=== PATIENT | male | born 1980 | race Caucasian/White ===

== ENCOUNTER 2021-09-08 10:14 | Outpatient (REF) | payer MEDICARE, MEDICAID, SELFPAY ==
[2021-09-08 10:26] LABS: MANUAL DIFF FLAG NO
[2021-09-08 10:38] LABS: Basophils Absolute Auto 0.1 X10*3/uL (0.0-0.2); Eosinophils Absolute Auto 0.2 X10*3/uL (0.0-0.4); Eosinophils Percent Auto 4.7 % (0-4); Hematocrit 41.3 % (42.0-52.0); Hemoglobin 12.9 g/dl (14.0-18.0); Imm Gran Abs Auto 0.01 X10*3/uL (0.00-0.03); Imm Gran Pct Auto 0.2 % (0.0-0.4); Lymphocytes Absolute Auto 2.6 X10*3/uL (1.2-4.9); Lymphocytes Percent Auto 52.5 % (20-40); Mean Corpuscular HGB Conc 31.2 g/dl (31.0-36.0); Mean Corpuscular Hemoglobin 27.2 pg (27.0-33.0); Mean Corpuscular Volume 87.1 fL (80.0-98.0); Mean Platelet Volume 10.4 fL (9.4-12.4); Monocytes Absolute Auto 0.4 X10*3/uL (0.1-1.2); Monocytes Percent Auto 7.5 % (2-11); Neutrophils Absolute Auto 1.7 x10*3/uL (2.0-8.3); Neutrophils Percent Auto 34.1 % (45-73); Platelet Count 303 X10*3/uL (160-400); Red Blood Count 4.74 X10*6/uL (4.60-5.80); White Blood Count 4.9 X10*3/uL (4.8-10.8)
[2021-09-08 11:02] LABS: Alanine Aminotransferase 30 U/L (0-40); Albumin Level 4.5 g/dL (3.5-5.0); Alkaline Phosphatase 137 U/L (39-117); Anion Gap 12 (12-20); Aspartate Amino Transferase 43 U/L (5-37); Bilirubin Total 0.9 mg/dL (0.0-1.0); Blood Urea Nitrogen 9 mg/dL (9-16); Calcium 9.7 mg/dL (8.4-10.2); Carbon Dioxide 27 mmol/L (22-29); Chloride 107 mmol/L (96-108); Estimated Glomerular Filt Rate > 60; Glucose Fasting 101 mg/dL (60-99); Potassium 4.5 mmol/L (3.3-5.1); Sodium 141 mmol/L (135-145)
[2021-09-08 11:09] LABS: B Type Natriuretic Peptide < 10 pg/mL (<100)
[2021-09-08 11:23] LABS: Thyroid Stimulating Hormone 3.29 uIU/mL (0.32-4.0)
== END 2021-09-08 10:15 | disposition home or self-care (01) ==
LOC: HO.LAB 10:14
PROVIDERS: Visit Provider Internal Medicine
DX: R60.0 Localized edema (principal)
CPT/HCPCS: 36415; 80053; 83880; 84443; 85025

== ENCOUNTER 2022-05-20 10:49 | Outpatient (REF) | payer MEDICARE, MEDICAID, SELFPAY ==
[2022-05-20 11:19] LABS: MANUAL DIFF FLAG NO
--- NOTE | 2022-05-20 11:40 | ECG_ITS ---
Test Reason : R07.9 Blood Pressure : / mmHG Vent. Rate : 085 BPM Atrial Rate : 085 BPM P-R Int : 132 ms QRS Dur : 098 ms QT Int : 376 ms P-R-T Axes : 069 062 067 degrees QTc Int : 447 ms Normal sinus rhythm Normal ECG When compared with ECG of 02-DEC-2015 06:19, Premature ventricular complexes are no longer Present Vent. rate has decreased BY 49 BPM Non-specific change in ST segment in Inferior leads Nonspecific T wave abnormality no longer evident in Lateral leads Referred By: Daphnie Nelson Electronically Signed By:ABBIE OLIVO
[2022-05-20 11:56] LABS: Basophils Percent Auto 0.9 % (0-2); Eosinophils Absolute Auto 0.2 X10*3/uL (0.0-0.4); Eosinophils Percent Auto 3.6 % (0-4); Hematocrit 39.6 % (42.0-52.0); Lymphocytes Absolute Auto 1.9 X10*3/uL (1.2-4.9); Lymphocytes Percent Auto 41.9 % (20-40); Mean Corpuscular HGB Conc 32.8 g/dl (31.0-36.0); Mean Corpuscular Hemoglobin 28.4 pg (27.0-33.0); Mean Corpuscular Volume 86.7 fL (80.0-98.0); Mean Platelet Volume 10.7 fL (9.4-12.4); Monocytes Absolute Auto 0.4 X10*3/uL (0.1-1.2); Monocytes Percent Auto 9.4 % (2-11); Neutrophils Percent Auto 44.2 % (45-73); Platelet Count 192 X10*3/uL (160-400); Red Blood Count 4.57 X10*6/uL (4.60-5.80); Red Cell Distribution Width 16.3 % (11.0-16.0); White Blood Count 4.5 X10*3/uL (4.8-10.8)
[2022-05-20 12:56] LABS: Alanine Aminotransferase 30 U/L (0-40); Albumin Level 4.1 g/dL (3.5-5.0); Alkaline Phosphatase 103 U/L (39-117); Anion Gap 18 (12-20); Aspartate Amino Transferase 66 U/L (5-37); Bilirubin Total 0.8 mg/dL (0.0-1.0); Blood Urea Nitrogen 11 mg/dL (9-16); Calcium 8.9 mg/dL (8.4-10.2); Carbon Dioxide 30 mmol/L (22-29); Chloride 97 mmol/L (96-108); Cholesterol 171 mg/dL; Estimated Glomerular Filt Rate > 60; Glucose Random 100 mg/dL (60-115); HDL Cholesterol 60 mg/dL; LDL Cholesterol Calculated 64 mg/dl; Potassium 4.6 mmol/L (3.3-5.1); Sodium 140 mmol/L (135-145); Triglycerides 237 mg/dL
[2022-05-20 13:10] LABS: Thyroid Stimulating Hormone 1.61 uIU/mL (0.32-4.0)
[2022-05-21 16:42] LABS: NT-proBNP 27 pg/mL
== END 2022-05-20 10:50 | disposition home or self-care (01) ==
LOC: HO.LAB 10:49
PROVIDERS: PCP Internal Medicine; Visit Provider Internal Medicine
DX: R07.9 Chest pain, unspecified (principal); R60.0 Localized edema
CPT/HCPCS: 36415; 80053; 80061; 83880; 84443; 85025; 93005

== ENCOUNTER 2022-07-21 14:09 | Outpatient (REF) | payer MEDICARE, MEDICAID, SELFPAY ==
[2022-07-21 16:11] LABS: Syphilis Screen Nonreactive (Nonreactive)
[2022-07-21 17:22] LABS: CT PCR NOT DETECTED (Not Detect.); NG PCR NOT DETECTED (Not Detect.)
[2022-07-22 07:45] LABS: HBc Num1 0.05 S/CO (0.00-0.79); HBsAGNum1 0.25 S/CO (0.00-0.99); HIV AB/AG Nonreactive (Nonreactive); HIV Num 1 0.09 S/CO (0.00-0.99); Hepatitis B Core Antibody Nonreactive (Nonreactive); Hepatitis B Surface Antigen Negative (Negative); ~HepC Num1 0.14 S/CO (0.00-0.79); ~Hepatitis B Surface Antibody REACTIVE (Nonreactive); ~Hepatitis C Antibody Nonreactive (Nonreactive)
== END 2022-07-21 14:10 | disposition home or self-care (01) ==
LOC: HO.LAB 14:09
PROVIDERS: PCP Internal Medicine; Visit Provider Physician Assistant
DX: Z11.4 Encounter for screening for human immunodeficiency virus [HIV] (principal); Z11.3 Encounter for screening for infections with a predominantly sexual mode of transmission; Z20.2 Contact with and (suspected) exposure to infections with a predominantly sexual mode of transmission
CPT/HCPCS: 86704; 86706; 86780; 86803; 87340; 87389; 87491; 87591

== ENCOUNTER → 2022-10-04 10:35 | Outpatient (BNVA) | payer MEDICARE, MEDICAID, SELFPAY | PROVIDERS: PCP Internal Medicine; Visit Provider Nurse Practitioner Psychiatric/Mental Health | DX: F10.20 Alcohol dependence, uncomplicated (principal) | CPT/HCPCS: 99202 ==

== ENCOUNTER 2023-02-23 12:33 | Outpatient (REF) | payer MEDICARE, MEDICAID, SELFPAY ==
[2023-02-23 14:07] LABS: Hematocrit 40.7 % (42.0-52.0); Mean Corpuscular HGB Conc 31.9 g/dl (31.0-36.0); Mean Corpuscular Hemoglobin 29.4 pg (27.0-33.0); Mean Corpuscular Volume 92.1 fL (80.0-98.0); Mean Platelet Volume 10.9 fL (9.4-12.4); Platelet Count 291 X10*3/uL (160-400); Red Blood Count 4.42 X10*6/uL (4.60-5.80); Red Cell Distribution Width 14.5 % (11.0-16.0); White Blood Count 7.7 X10*3/uL (4.8-10.8)
[2023-02-23 14:33] LABS: Iron 45 mcg/dL (45-160); Percent Iron Saturation 12 % (15-50); Total Iron Binding Capacity 364 mcg/dL (228-428); Unsaturated Iron Binding 319 ug/dL
[2023-02-23 14:43] LABS: Ferritin 10 ng/mL (20-250)
[2023-02-25 20:29] LABS: Immunoglobulin A 353 mg/dL (47-310)
[2023-03-01 20:33] LABS: Transglutaminase IgA <1.0 U/mL
== END 2023-02-23 12:34 | disposition home or self-care (01) ==
LOC: HO.LAB 12:33
PROVIDERS: PCP Internal Medicine; Visit Provider Internal Medicine
DX: K64.9 Unspecified hemorrhoids (principal); K92.1 Melena
CPT/HCPCS: 36415; 82728; 82784; 83540; 85027; 86364; 99202

== ENCOUNTER 2023-03-25 10:00 | Outpatient (RCR) | payer MEDICARE, MEDICAID, SELFPAY ==
--- NOTE | 2023-03-10 13:54 | MHC.PT.EP ---
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 Per referring provider's last note on 02/09/23: records obtained after visit show cta chest with age indeterminate but likely chronic mild compression deformities at T4-T7 with out fracture or subluxation which is likely pertinent to his pain. He does also present w/ significant muscular tension/spasm to periscapular musculature. Impairments include pain, decreased range of motion, decreased strength, impaired functional mobility, impaired postural awareness, and altered ambulation mechanics. pt is a good candidate for skilled PT due to age, potential remediation of impairments, typical disease/condition progression and prognosis, comorbidities, and motivation. pt would benefit from skilled PT intervention to provide a tailored strengthening and stretching exercise program, functional training, gait training, postural re-training, neuromuscular re-education, modalities as needed for pain, equipment safety demonstration. Frequency and Duration: The patient will be seen 2x/wk for 4 wks Short Term Goals: pt will be I w/ HEP to promote self-management of condition. pt will demo proper sitting posture w/ lumbar roll to promote neutral spine w/ seated ADLs. Retirement Goals: pt will report a statistically significant improvement in self-reported outcome measure, Bernie, to promote return to PLOF. pt will improve thoracolumbar flexion to 100% to promote ease in lower body dressing. Treatment Plan: Modalities to reduce pain, spasms and effusion. Manual therapy to restore motion and function. Therapeutic exercise to improve strength and flexibility. Neuromuscular re-education for posture and balance. Therapeutic activities to return to functional activities of daily living. Electronically signed by: Brianna Beard PT, DPT Please sign and return to therapist. Thank you for your referral.
--- NOTE | 2023-04-06 10:17 | MHC.PT.DC ---
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 Per [facility] Core Therapy policy he is being discharged for non-compliance. He has been given a home exercise program he should continue with at this time. Electronically signed by: Brianna Beard PT, DPT Please sign and return to therapist. Thank you for your referral.
== END 2023-04-06 10:17 | disposition home or self-care (01) ==
LOC: HO.PT 10:00
PROVIDERS: PCP Internal Medicine; Visit Provider Physician Assistant
DX: M51.24 Other intervertebral disc displacement, thoracic region (principal)
CPT/HCPCS: 97110; 97140; 97162

== ENCOUNTER 2023-03-28 11:06 | Outpatient (REF) | payer MEDICARE, MEDICAID, SELFPAY | END 2023-03-28 11:07 | disposition home or self-care (01) | LOC: HO.MRI 11:06 | PROVIDERS: PCP Internal Medicine; Visit Provider Physician Assistant | DX: M43.9 Deforming dorsopathy, unspecified (principal); M54.10 Radiculopathy, site unspecified | CPT/HCPCS: 72146 ==

== ENCOUNTER 2023-04-25 15:30 | Outpatient (REF) | payer MEDICARE, MEDICAID, SELFPAY ==
[2023-04-25 16:19] LABS: MANUAL DIFF FLAG NO
[2023-04-25 16:40] LABS: Basophils Percent Auto 0.6 % (0-2); Eosinophils Absolute Auto 0.1 X10*3/uL (0.0-0.4); Eosinophils Percent Auto 2.1 % (0-4); Hematocrit 41.2 % (42.0-52.0); Hemoglobin 13.3 g/dl (14.0-18.0); Imm Gran Abs Auto 0.03 X10*3/uL (0.00-0.03); Imm Gran Pct Auto 0.5 % (0.0-0.4); Lymphocytes Absolute Auto 2.1 X10*3/uL (1.2-4.9); Lymphocytes Percent Auto 33.5 % (20-40); Mean Corpuscular HGB Conc 32.3 g/dl (31.0-36.0); Mean Corpuscular Hemoglobin 28.9 pg (27.0-33.0); Mean Corpuscular Volume 89.4 fL (80.0-98.0); Mean Platelet Volume 10.7 fL (9.4-12.4); Monocytes Absolute Auto 0.5 X10*3/uL (0.1-1.2); Monocytes Percent Auto 7.4 % (2-11); Neutrophils Absolute Auto 3.5 x10*3/uL (2.0-8.3); Neutrophils Percent Auto 55.9 % (45-73); Platelet Count 170 X10*3/uL (160-400); Red Blood Count 4.61 X10*6/uL (4.60-5.80); Red Cell Distribution Width 15.5 % (11.0-16.0); White Blood Count 6.2 X10*3/uL (4.8-10.8)
[2023-04-25 17:11] LABS: Iron 152 mcg/dL (45-160); Percent Iron Saturation 48 % (15-50); Total Iron Binding Capacity 319 mcg/dL (228-428); Unsaturated Iron Binding 167 ug/dL
== END 2023-04-25 15:31 | disposition home or self-care (01) ==
LOC: HO.LAB 15:30
PROVIDERS: PCP Internal Medicine; Visit Provider Internal Medicine
DX: D64.9 Anemia, unspecified (principal); K64.9 Unspecified hemorrhoids; K92.1 Melena
CPT/HCPCS: 36415; 83540; 85025; 99212

== ENCOUNTER 2023-04-25 15:30 | Outpatient (AMB) | payer MEDICARE, MEDICAID, SELFPAY ==
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
[2023-04-25 15:34] VITALS: BP 149/89; PULSE 86; BMI 28.1
== END 2023-04-25 16:38 | disposition home or self-care (01) ==
PROVIDERS: PCP Internal Medicine; Visit Provider Internal Medicine
DX: K64.9 Unspecified hemorrhoids (principal); K92.1 Melena
CPT/HCPCS: 99214

== ENCOUNTER 2023-06-09 08:19 | Day surgery (SDC) | payer MEDICARE, MEDICAID, SELFPAY ==
[2023-03-01 11:03] VITALS: BMI 28.8
--- NOTE | 2023-03-01 15:05 | P.CONAN_ITS ---
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 [facility] Active Problems Active Problems: All Active Problems (Updated 02/11/23 @ 18:38 by NATACHA Thomas) Compression deformity of vertebra (Acute) Radicular pain of both lower extremities (Acute) Bloody stools (Acute) Alcohol use disorder, severe, dependence (Acute) Spitting up blood (Acute) Hemorrhoids (Acute) Blood in stool (Acute) GERD (gastroesophageal reflux disease) (Acute) Alcohol dependence (Acute) SHERRON (generalized anxiety disorder) (Acute) Chest pain (Acute) Lytic bone lesions on xray (Acute) Insomnia (Acute) Rib pain (Acute) Leg edema (Acute) Left elbow pain (Acute) Past Medical History Medical History Compression deformity of vertebra Insomnia Left elbow pain Leg edema Lytic bone lesions on xray Rib pain Social History Social History Housing: Apartment Patient Tobacco Use Status: Former Tobacco user Tobacco use type: Cigarette e-Cigarette/Vaping Use: Never Used Second Hand Smoke Exposure: No service: No Current occupational status: unemployed Cognitive needs: No Hearing needs: No Vision needs: No Meds Allergies Allergy/AdvReac Type Severity Reaction Status Date / Time No Known Allergies Allergy Verified 02/23/23 12:57 [No Known Allergies*] seasonal allergies Allergy Unknown Sneezing Uncoded 02/09/23 13:22 Home Medications Medication Instructions Recorded Confirmed Last Taken Type albuterol sulfate 90 mcg/actuation 2 puff inhalation Q6H PRN 09/07/21 02/11/23 Unknown History aerosol inhaler (ProAir HFA) Exam Exam Date and Time: March 01, 2023 1505 Height,Weight and Vital Signs: Height 5 ft 8.5 in Weight 87.09 kg Pertinent Lab Results Pertinent Lab Results: Laboratory Tests 02/23/23 13:48 WBC 7.7 Hgb 13.0 L Hct 40.7 L Plt Count 291 D Assessment and Plan Assessment Anesthesia Assessment: Chart Reviewed
[2023-06-06 12:33] VITALS: BMI 28.0
--- NOTE | 2023-06-08 11:04 | HO.ANESPROP2 ---
HPI - Anesthesia Eval Consult details Narrative: 42yo M for Colonoscopy PMFSH Active Problems Active Problems: All Active Problems (Updated 04/29/23 @ 15:44 by Daphnie Nelson MD) Protrusion of thoracic intervertebral disc (Acute) Compression deformity of vertebra (Acute) Radicular pain of both lower extremities (Acute) Bloody stools (Acute) Alcohol use disorder, severe, dependence (Acute) Spitting up blood (Acute) Hemorrhoids (Acute) Blood in stool (Acute) GERD (gastroesophageal reflux disease) (Acute) Alcohol dependence (Acute) SHERRON (generalized anxiety disorder) (Acute) Chest pain (Acute) Lytic bone lesions on xray (Acute) Insomnia (Acute) Rib pain (Acute) Leg edema (Acute) Left elbow pain (Acute) Past Medical History Medical History Compression deformity of vertebra Lytic bone lesions on xray Insomnia Rib pain Leg edema Left elbow pain Social History Social History Housing: Apartment Patient Tobacco Use Status: Current everyday Tobacco user Tobacco use type: Cigarette e-Cigarette/Vaping Use: Never Used Second Hand Smoke Exposure: No service: No Current occupational status: unemployed Cognitive needs: No Hearing needs: No Vision needs: No Meds Allergies Allergy/AdvReac Type Severity Reaction Status Date / Time No Known Allergies Allergy Verified 04/25/23 15:42 [No Known Allergies*] Exam Exam Date and Time: June 08, 2023 1104 Height,Weight and Vital Signs: Height 5 ft 8.5 in Weight 84.822 kg Assessment and Plan Assessment Anesthesia Assessment: Chart Reviewed
[2023-06-09 09:38] VITALS: BMI 27.7
[2023-06-09 09:42] VITALS: BMI 27.7
[2023-06-09 09:43] VITALS: BP 135/93; PULSE 82; RESP 18; TEMP 36.9; O2SAT 95
[2023-06-09] MEDS: Lactated Ringers 1,000 ML 100 ML IVCONT (10:08)
--- NOTE | 2023-06-09 10:15 | P.OP_ITS ---
Operative Note Operative Note Date of Service: 06/09/23 Narrative: Procedure: Colonoscopy Indication: Lower GI bleeding Endoscopist: Lena Rios MD Anesthesia Provider: Dr Janna Dominguez Anesthesia type: MAC Instrument: Olympus [id number] Consent: Indication, risks vs benefits, and alternatives were discussed with the patient who gave written informed consent to proceed. An program director/morning show host was utilized to assist with the consent. EKG, pulse, pulse oximetry and blood pressure were monitored throughout the procedure. Please see anesthesia flowsheet. Procedure: The patient was brought to the procedure room and placed in the left lateral decubitus position. IV medications were administered by the anesthesia provider in attendance. A digital rectal exam was performed which was abnormal due to finding of hemorrhoids. The colonoscope was then inserted through the anus and advanced through the colon to the cecum at 75 cm,and terminal ileum. Mucosa was carefully examined under high definition white light as the instrument was slowly withdrawn in a retrograde panoramic fashion. Retroflexion was performed in rectum. The procedure was not difficult. There were no immediate obvious complications. The quality of the prep was BBPS: 3+2+3 = adequate Withdrawal time 10 minutes. Limitations: No limitations. Findings: Mucosa: Normal to cecum and terminal ileum. Protruding lesions: * Large internal hemorrhoids with stigmata of recent bleeding. Impression: 1. Normal colon and terminal ileum mucosa 2. Large internal and external hemorrhoids with stigmata of bleeding Recommendations: - Add fiber supplementation - Anusol supp x 7-10 days - Avoid constipation - Can consider surg referral if hemorrhoidal bleeding does not respond to medical management
--- NOTE | 2023-06-09 10:15 | MHC.SHP ---
Pre-Procedural Eval Section A Date of Service: 06/09/23 Section B Chief Complaint: Rectal bleeding Details of Present Illness: PMH: Compression deformity of vertebra Insomnia Left elbow pain Leg edema Lytic bone lesions on xray Rib pain Present Medications: see Short Stay Collaborative assessment Allergies: Allergies Allergy/AdvReac Type Severity Reaction Status Date / Time No Known Allergies Allergy Verified 04/25/23 15:42 [No Known Allergies*] Review of Systems Review of Systems Comment: 10 point ROS negative Exam Exam Comment: Gen appear: No acute distress HEENT: no icterus Chest: No overt resp distress Abd: soft, nontender, nondistended Psych: Stable affect, answering questions appropriately Neuro: A/Ox3 noted to move all extremities spontaneously Ext: no peripheral edema Plan Diagnosis/Plan: Unchanged I have reviewed the history and physical and performed a pertinent physical examination on my patient. No changes have occurred unless specified. Time Spent With Patient Time: Total time managing care of this patient today ____ minutes.
--- NOTE | 2023-06-09 10:28 | P.CONAN_ITS ---
[facility] Active Problems Active Problems: All Active Problems (Updated 04/29/23 @ 15:44 by Daphnie Nelson MD) Protrusion of thoracic intervertebral disc (Acute) Compression deformity of vertebra (Acute) Radicular pain of both lower extremities (Acute) Bloody stools (Acute) Alcohol use disorder, severe, dependence (Acute) Spitting up blood (Acute) Hemorrhoids (Acute) Blood in stool (Acute) GERD (gastroesophageal reflux disease) (Acute) Alcohol dependence (Acute) SHERRON (generalized anxiety disorder) (Acute) Chest pain (Acute) Lytic bone lesions on xray (Acute) Insomnia (Acute) Rib pain (Acute) Leg edema (Acute) Left elbow pain (Acute) surdo-mutity Past Medical History Medical History Compression deformity of vertebra Lytic bone lesions on xray Insomnia Rib pain Leg edema Left elbow pain Functional capacity: independent ambulation Family History Family history of problems with anesthesia: No Surgical History History of Problems with Anesthesia: No Social History Social History Housing: Apartment Patient Tobacco Use Status: Current everyday Tobacco user Tobacco use type: Cigarette e-Cigarette/Vaping Use: Never Used Date Education Initiated: 06/09/23 Second Hand Smoke Exposure: No Use of substances other than those prescribed or required for medical reasons: No Are you DNR?: No Advance Directives: No Advance Directives Information Provided: Yes service: No Current occupational status: unemployed Cognitive needs: No Hearing needs: No Vision needs: No Meds Allergies Allergy/AdvReac Type Severity Reaction Status Date / Time No Known Allergies Allergy Verified 04/25/23 15:42 [No Known Allergies*] Active Medications: Current Medications Lactated Ringer's (Lr) 1,000 mls @ 100 mls/hr IVCONT .Q10H DAVID Last Admin: 06/09/23 10:08 Dose: 100 mls/hr Exam Exam Date and Time: June 09, 2023 1028 Height,Weight and Vital Signs: Height 5 ft 8.5 in Weight 83.915 kg Last Vital Signs Temp 98.5 F 06/09/23 09:43 Pulse 82 06/09/23 09:43 Resp 18 06/09/23 09:43 BP 135/93 H 06/09/23 09:43 Pulse Ox 95 06/09/23 09:43 O2 Del Method Room Air 06/09/23 09:43 Airway Mallampati Class: II TM Dist: >3cm Neck ROM: Full Heart: RRR Lungs: CTA Assessment and Plan Assessment Anesthesia Assessment: Anesthesia Plan Discussed Final Anesthetic Review Family History of Problems with Anesthesia: No History of Problems with Anesthesia: No NPO: Yes ASA Class: II Final Preanesthetic Review: Meds/Allgs Chart Reviewed, Consent Obtained/Reviewed and Anes Risks/Benef Reviewed Patient Risk: Low Procedure Risk: Low Anesthetic Plan Anesthetic Plan: MAC: Disposition: Standard PACU
[2023-06-09 10:42] VITALS: BP 111/62; PULSE 105; RESP 16; TEMP 36.2; O2SAT 94
[2023-06-09 10:57] VITALS: BP 137/83; PULSE 87; RESP 18; TEMP 36.2; O2SAT 100
== END 2023-06-09 11:26 | disposition home or self-care (01) ==
PROVIDERS: PCP Internal Medicine; Visit Provider Internal Medicine
PROC: 0DJD8ZZ Inspection of Lower Intestinal Tract, Via Natural or Artificial Opening Endoscopic (ICD-10-PCS; CPT 45378; principal; 2023-06-09 10:10)
DX: K62.5 Hemorrhage of anus and rectum (principal); K64.8 Other hemorrhoids; K64.4 Residual hemorrhoidal skin tags; K21.9 Gastro-esophageal reflux disease without esophagitis; R60.9 Edema, unspecified; F41.1 Generalized anxiety disorder; Z79.899 Other long term (current) drug therapy; F17.210 Nicotine dependence, cigarettes, uncomplicated
CPT/HCPCS: 45378

== ENCOUNTER → 2023-06-09 08:19 | Outpatient (BNV) | payer MEDICARE, MEDICAID, SELFPAY | PROVIDERS: PCP Internal Medicine; Visit Provider Internal Medicine | DX: K92.2 Gastrointestinal hemorrhage, unspecified (principal); K64.9 Unspecified hemorrhoids | CPT/HCPCS: 45378 ==

== ENCOUNTER 2023-06-21 09:34 | Outpatient (AMB) | payer MEDICARE, MEDICAID, SELFPAY ==
--- NOTE | 2023-06-21 09:35 | A.OFFPC_ITS ---
Vital Signs 06/21/23 09:37 Height 5 ft 8.5 in Weight 193 lb BMI 28.9 BP 110/82 Blood Pressure Location Lt brachial Position Sitting Intake Visit Reasons: Follow Up Intake Note: Patient here for a follow up Lead Software Developer Required: Yes Accompanied by: Other Relationship Allergies No Known Allergies [No Known Allergies*] Allergy (Verified 06/21/23 09:56) Medication List - Last Reconciled 06/21/23 by Daphnie Nelson MD ferrous sulfate 325 mg PO DAILY hydrocortisone 2.5% (Procto-Med HC) 1 appl HI BEDTIME 10 days ibuprofen 600 mg PO TID tizanidine 2 mg PO BID tramadol 50 mg PO TID PRN Tobacco use date assessed: 02/09/23 Dental Screening Dental Screen Date: 06/21/23 Did you have a dental visit in the last 12 months?: No Did you have a dental problem in the last 6 months where you did not have access to dental care?: No Was dental information given to patient?: Patient has dentist HPI HPI Comments History of Present Illness Details This is a 42-year-old male that has blood in the stools and already had colonoscopy which was within normal limits. He is accompanied by . 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 Also complains of occasional right eye blurry vision and will be referred to Ophthalmology. No chest pain or shortness of breath. Have thoracic disc protrusion and is follow by pain management. [facility] Medical History (Updated 06/21/23 @ 10:12 by Daphnie Nelson MD) Compression deformity of vertebra Lytic bone lesions on xray Insomnia Rib pain Leg edema Left elbow pain Surgical History No pertinent past surgical history Family History Mother No problems noted. Social History Housing: Apartment Patient Tobacco Use Status: Current everyday Tobacco user Tobacco use type: Cigarette e-Cigarette/Vaping Use: Never Used Second Hand Smoke Exposure: No service: No Current occupational status: unemployed Cognitive needs: No Hearing needs: No Vision needs: No Questionnaire PHQ-9 Over the last 2 weeks, how often have you been bothered by any of the following problems? 1. Little interest or pleasure in doing things: not at all 2. Feeling down, depressed, or hopeless: not at all 3. Trouble falling or staying asleep, or sleeping too much: not at all 4. Feeling tired or having little energy: not at all 5. Poor appetite or overeating: not at all 6. Feeling bad about yourself - or that you are a failure or have let yourself or your family down: not at all 7. Trouble concentrating on things, such as reading the newspaper or watching television: not at all 8. Moving or speaking so slowly that other people could have noticed. Or the opposite - being so fidgety or restless that you have been moving around a lot more than usual: not at all 9. Thoughts that you would be better off or of hurting yourself in some way: not at all Total score: 0 Depression Screening Interpretation: Negative 10402 - PHQ-9 Billing: Yes Source: Developed by Drs. Tom Red, Sarina Tristan, Goldy Melissa and colleagues, with an educational jeff from [employer]. Thrive Questionnaire Date Thrive assessed: 06/21/23 I am a: Patient What is your living situation today?: I have a steady place to live Within the past 12 months, did the food you bought not last and you didn't have the money to get more?: Never true Within the past 12 months, did you worry whether your food would run out before you got money to buy more?: Never true Do you have trouble paying for medicines?: No Do you have trouble getting transportation to medical appointments?: No Do you have trouble paying your heating and electricity bill?: No Do you have trouble taking care of your child, family member or friend?: No Do you have trouble with day-to-day activities such as bathing, preparing meals, shopping, managing finances, etc.?: No Are you currently unemployed and looking for a job?: No Are you interested in more education?: No Please select the resources that you would like help with: None Currently or been in a relationship where the following occur: no concerns reported AUDIT C Alcohol Use Questionnaire (AUDIT-C) 1. How often do you have a drink containing alcohol?: 4 or more times a week 2. How many drinks containing alcohol do you have on a typical day when you are drinking?: 3 or 4 3. How often do you have six or more drinks on one occasion?: Daily or almost daily Total Score: 9 Score Reviewed/Action Taken: Yes SHERRON-7 AMB Questionnaire SHERRON-7 Date SHERRON - 7 assessed: 06/21/23 Feeling nervous, anxious, or on edge: 0 = Not at all Not being able to stop or control worryin = Not at all Worrying too much about different things: 0 = Not at all Trouble relaxin = Not at all Being so restless that it is hard to sit still: 0 = Not at all Becoming easily annoyed or irritable: 0 = Not at all Feeling afraid as if something awful might happen: 0 = Not at all Total SHERRON-7 score (0-4 normal; 5-9 mild; 10-14 moderate; 15-21 severe): 0 Source: Developed by Drs. Tom Red, Sarina Tristan, Goldy Melissa and colleagues, with an educational jeff from [employer]. SHERRON-7 Assessment Billing SHERRON-7 Assessment Tool: SHERRON-7 Assessment 94110 Review of Systems Const All systems reviewed & are unremarkable except as noted in HPI and below Eyes Reports no additional complaints, Denies change in vision and Denies other visual disturbances Card Denies chest pain at rest, Denies chest pain with activity, Denies edema, Denies irregular heart rhythm, Denies claudication, Denies dyspnea, Denies dyspnea on exertion, Denies orthopnea, Denies paroxysmal nocturnal dyspnea and Denies slow heart rate Resp Denies cough, Denies dyspnea and Denies dyspnea on exertion GI Denies abdominal pain, Reports hematochezia, Denies change in bowel habits, Denies excessive flatus, Denies nausea and Denies vomiting Denies urinary hesitancy, Denies urinary incontinence and Denies urinary urgency Musc Denies abnormal gait, Denies atrophy, Denies deformity and Denies limited range of motion Skin/Breast Denies bleeding lesions, Denies changing lesions and Denies rash Neuro Denies abnormal gait and Denies lack of coordination Physical exam (Primary Care) Vital Signs: Last Vital Signs BP 110/82 06/21/23 09:37 BMI result Body Mass Index 28.9 Tobacco/Smoking Status: Tobacco use Status Tobacco use date assessed 02/09/23 06/21/23 09:40 Patient Tobacco Use Status Current everyday Tobacco 06/21/23 09:40 Tobacco use type Cigarette 06/21/23 09:40 e-Cigarette/Vaping Use Never Used 06/21/23 09:40 PHQ-9: PHQ-9 Score PHQ-9: Total score 0 06/21/23 10:13 Depression Screening Interpretation: Negative Thrive Assessment: Date of Thrive Assessment Date Thrive assessed 06/21/23 06/21/23 09:40 Currently or been in a relationship where the following occur: no concerns reported Eyes General: appearance normal, both eyes and all related structures Eyelids: Yes eyelids normal Conjunctivae: conjunctivae normal Neck Neck: Yes normal visual inspection and Yes supple Resp Effort & Inspection: normal respiratory effort Auscultation: clear to auscultation bilaterally Cardio Jugular venous distension: no JVD Rate: regular rate Rhythm: regular rhythm Heart sounds: S1 normal heart sound present and S2 normal heart sound present Extrem General: Yes full ROM Assessment and Plan Assessment & Plan (1) Bloody stools: Code(s): K92.1 - Melena Plan: Repeat CBC. Follow up with Gastroenterology. (2) Blurry vision: Code(s): H53.8 - Other visual disturbances Plan: Referred to Ophthalmology (3) Protrusion of thoracic intervertebral disc: Code(s): M51.24 - Other intervertebral disc displacement, thoracic region Plan: Follow by pain management. Orders: Orders Comprehensive [place]. Panel Fast Today M54.10 - Radiculopathy, site unspecified HIV Ab/Ag Today Z11.3 - Encounter for screening for infections with a predominantly sexual mode of transmission Complete Blood Count Auto Diff Today D64.9 - Anemia, unspecified IRON PROFILE Today D64.9 - Anemia, unspecified Lipid Panel Today E78.5 - Hyperlipidemia, unspecified CT NG by PCR Today Z11.3 - Encounter for screening for infections with a predominantly sexual mode of transmission Syphilis Screen Today Z11.3 - Encounter for screening for infections with a predominantly sexual mode of transmission Hepatitis C Antibody Today Z11.3 - Encounter for screening for infections with a predominantly sexual mode of transmission Referrals Ophthalmology Referral H53.8 - Other visual disturbances Coding Level of Care Code Est Pt Level 3 (62225) Diagnoses Bloody stools K92.1 Blurry vision H53.8 Protrusion of thoracic intervertebral disc M51.24 Additional Codes SHERRON-7 Assessment Billing - SHERRON-7 Assessment Tool: SHERRON-7 Assessment 85459 ([id number]) Time Spent (min) 19
[2023-06-21 09:37] VITALS: BP 110/82; BMI 28.9
== END 2023-06-21 10:11 | disposition home or self-care (01) ==
PROVIDERS: Visit Provider Internal Medicine
DX: K92.1 Melena (principal); H53.8 Other visual disturbances; M51.24 Other intervertebral disc displacement, thoracic region
CPT/HCPCS: 99213

== ENCOUNTER 2023-06-21 10:23 | Outpatient (REF) | payer MEDICARE, MEDICAID, SELFPAY ==
[2023-06-21 10:39] LABS: MANUAL DIFF FLAG NO
[2023-06-21 11:43] LABS: Basophils Absolute Auto 0.1 X10*3/uL (0.0-0.2); Basophils Percent Auto 0.9 % (0-2); Eosinophils Absolute Auto 0.5 X10*3/uL (0.0-0.4); Hematocrit 42.7 % (42.0-52.0); Hemoglobin 13.8 g/dl (14.0-18.0); Imm Gran Abs Auto 0.02 X10*3/uL (0.00-0.03); Imm Gran Pct Auto 0.3 % (0.0-0.4); Lymphocytes Absolute Auto 2.7 X10*3/uL (1.2-4.9); Lymphocytes Percent Auto 34.7 % (20-40); Mean Corpuscular HGB Conc 32.3 g/dl (31.0-36.0); Mean Corpuscular Hemoglobin 28.5 pg (27.0-33.0); Mean Corpuscular Volume 88.2 fL (80.0-98.0); Mean Platelet Volume 11.4 fL (9.4-12.4); Monocytes Absolute Auto 0.8 X10*3/uL (0.1-1.2); Neutrophils Absolute Auto 3.6 x10*3/uL (2.0-8.3); Neutrophils Percent Auto 47.1 % (45-73); Platelet Count 332 X10*3/uL (160-400); Red Blood Count 4.84 X10*6/uL (4.60-5.80); Red Cell Distribution Width 14.7 % (11.0-16.0); White Blood Count 7.7 X10*3/uL (4.8-10.8)
[2023-06-21 12:56] LABS: Alanine Aminotransferase 16 U/L (0-40); Albumin Level 4.4 g/dL (3.5-5.0); Alkaline Phosphatase 79 U/L (39-117); Anion Gap 14 (12-20); Aspartate Amino Transferase 19 U/L (5-37); Bilirubin Total 0.4 mg/dL (0.0-1.0); Blood Urea Nitrogen 13 mg/dL (9-16); Carbon Dioxide 25 mmol/L (22-29); Chloride 103 mmol/L (96-108); Cholesterol 229 mg/dL (<200); Estimated Glomerular Filt Rate > 60; Glucose Fasting 70 mg/dL (60-99); HDL Cholesterol 47 mg/dL (>40); Iron 165 mcg/dL (45-160); LDL Cholesterol Calculated 156 mg/dL (<100); Percent Iron Saturation 54 % (15-50); Potassium 4.2 mmol/L (3.3-5.1); Sodium 138 mmol/L (135-145); Total Iron Binding Capacity 308 mcg/dL (228-428); Total Protein 7.5 g/dL (6.5-8.0); Triglycerides 133 mg/dL (<150); Unsaturated Iron Binding 143 ug/dL
[2023-06-21 13:46] LABS: CT PCR NOT DETECTED (Not Detect.); NG PCR NOT DETECTED (Not Detect.)
[2023-06-22 03:57] LABS: Syphilis Screen Nonreactive (Nonreactive)
[2023-06-22 04:16] LABS: HIV AB/AG Nonreactive (Nonreactive); HIV Num 1 0.06 S/CO (0.00-0.99); ~HepC Num1 0.11 S/CO (0.00-0.79); ~Hepatitis C Antibody Nonreactive (Nonreactive)
== END 2023-06-21 10:24 | disposition home or self-care (01) ==
LOC: HO.LAB 10:23
PROVIDERS: PCP Internal Medicine; Visit Provider Internal Medicine
DX: Z11.4 Encounter for screening for human immunodeficiency virus [HIV] (principal); M54.10 Radiculopathy, site unspecified; D64.9 Anemia, unspecified; E78.5 Hyperlipidemia, unspecified; Z20.2 Contact with and (suspected) exposure to infections with a predominantly sexual mode of transmission
CPT/HCPCS: 0353U; 80053; 80061; 83540; 85025; 86780; 86803; 87389

== ENCOUNTER 2023-06-24 12:49 | Outpatient (AMB) | payer MEDICARE, MEDICAID, SELFPAY ==
--- NOTE | 2023-06-24 12:59 | A.OFFVIS_ITS ---
Intake Vital Signs 06/24/23 13:01 Height 5 ft 8.5 in Weight 194 lb 0.108 oz BMI 29.1 BP 129/68 Blood Pressure Location Lt brachial Position Sitting Pulse 79 Intake Visit Reasons: S/P Mckenzie; Dr. Rios Intake Note: Mack presents in the office as a follow up colonoscopy. CC: Drug Safety Associate Required: Yes Drug Safety Associate Name: Tobias [id number] Allergies No Known Allergies [No Known Allergies*] Allergy (Verified 06/24/23 13:01) HPI HPI Comments History of Present Illness Details This is a 42-year-old gentleman with past medical history of alcohol use disorder, deafness, who is here for rectal bleeding. Video diplomatic interpreter/translator was present for the encounter. 02/23/23: Patient states that he started noticing rectal pressure, bleeding and sensation of something protruding out of his anal orifice back in July. The bleeding occurred intermittently, and after pooping. Sometimes he would have a burning sensation with it as well. He was drinking quite a lot back then specially whiskey, which she has cut down in notices that the bleeding has also improved since then, but continues to occur intermittently. With this, he does not report any abdominal pain, nausea, vomiting, unintentional weight loss. He does have consistent NSAID use but does not report any melena. No family history of colon cancer in first-degree relatives. 04/25/23: Sx unchanged. Was supposed to have colo in February which the pt then rescheduled. Reports change in consistency and color of stool x last few months which correlates with starting iron supplements. 06/09/23: colo 1. Normal colon and terminal ileum mucos a 2. Large internal and external hemorrhoi ds with stigmata of bleeding 06/24/23: diplomatic interpreter/translator: [id number] Reports applying topical hydrocort intermittently. Has not noticed much change in rectal bleeding. Otherwise no other concerns. COUNTS INCLUDE 234 BEDS AT THE [facility] Medical History Compression deformity of vertebra Lytic bone lesions on xray Insomnia Rib pain Leg edema Left elbow pain Surgical History (Updated 06/24/23 @ 13:01 by CAMELIA Gaston) Hx of colonoscopy No pertinent past surgical history Family History Mother No problems noted. Social History Housing: Apartment Patient Tobacco Use Status: Current everyday Tobacco user Tobacco use type: Cigarette e-Cigarette/Vaping Use: Never Used Second Hand Smoke Exposure: No service: No Current occupational status: unemployed Cognitive needs: No Hearing needs: No Vision needs: No Review of Systems Const All systems reviewed & are unremarkable except as noted in HPI and below Physical Exam Vital Signs: Last Vital Signs Pulse 79 06/24/23 13:01 BP 129/68 06/24/23 13:01 BMI result Body Mass Index 29.1 Gen appear: No acute distress, well nourished HEENT: no icterus, no cervical lymphadenopathy Chest: No overt resp distress CVS: S1/S2, regular Abd: soft, nontender, nondistended Psych: Stable affect, signing to questions appropriately Neuro: A/Ox3 noted to move all extremities spontaneously Ext: no peripheral edema Assessment & Plan Assessment & Plan (1) Hemorrhoids: Code(s): K64.9 - Unspecified hemorrhoids (2) Blood in stool: Code(s): K92.1 - Melena Plan Mckenzie confirms large hemorrhoids with stigmata of bleeding leading to frequent rectal bleeding. Advised to use the hydrocort cream CONSISTENTLY for 10-14 days VA at bedtime. Avoid straining and constipation. Increase hydration and fiber. Sitz baths. If no improvement with measures above, pt to call us in which case a referral to surg will be made. Otherwise PRN follow up. He is aware of 10 year recall for colo for CRC screening. Coding Level of Care Code Est Pt Level 4 (41938) Diagnoses Hemorrhoids K64.9 Blood in stool K92.1
[2023-06-24 13:01] VITALS: BP 129/68; PULSE 79; BMI 29.1
== END 2023-06-24 14:06 | disposition home or self-care (01) ==
PROVIDERS: PCP Internal Medicine; Visit Provider Internal Medicine
DX: K64.9 Unspecified hemorrhoids (principal); K92.1 Melena
CPT/HCPCS: 99214

== ENCOUNTER → 2023-06-24 12:49 | Outpatient (BNVA) | payer MEDICARE, MEDICAID, SELFPAY | PROVIDERS: PCP Internal Medicine; Visit Provider Internal Medicine | DX: K64.9 Unspecified hemorrhoids (principal); K92.1 Melena | CPT/HCPCS: 99212 ==

== ENCOUNTER 2023-11-29 07:25 | Outpatient (REF) | payer MEDICARE, MEDICAID, SELFPAY ==
--- NOTE | ~2023-11-29 | MR_ITS ---
EXAMINATION: MR LUMBAR SPINE WITHOUT CONTRAST CLINICAL INFORMATION: Low back pain, lumbar radiculopathy COMPARISON: None available. TECHNIQUE: MRI of the lumbar spine was obtained using routine sequences without contrast. FINDINGS: The visualized lumbar vertebrae are intact with normal alignment. Evaluation of the intervertebral discs show: T12/L1: Intervertebral disc height is normal, with normal T2 signal. No focal disc herniation is seen. Bilateral T12/L1 neuroforamina are patent. Bilateral apophyseal joints are intact with normal alignment. L-1/L-2: Intervertebral disc height is normal, with normal T2 signal. No focal disc herniation is seen. Bilateral L1-L2 neuroforamina are patent. Bilateral apophyseal joints are intact with normal alignment. Left posterior lateral L2 T2 hyperintense lesion with multiple signal voids is seen, measuring 0.8 cm in AP diameter, 0.9 cm in width, 1.0 cm in vertical height. L2/L3: Intervertebral disc height is normal, with normal T2 signal. No focal disc herniation is seen. Bilateral L2-L3 neuroforamina are patent. Bilateral apophyseal joints are intact with normal alignment. L3/L4: Intervertebral disc height is normal, with normal T2 signal. No focal disc herniation is seen. Bilateral L3-L4 neuroforamina are patent. Bilateral apophyseal joints are intact with normal alignment. L4/L5: Intervertebral disc height is normal, with normal T2 signal. No focal disc herniation is seen. Bilateral L4-L5 neuroforamina are patent. Bilateral apophyseal joints are intact with normal alignment. L5/S1: Intervertebral disc height is mildly decreased, with moderate loss of T2 signal. Mild posterior disc protrusion is seen. Bilateral L5-S1 neuroforamina are patent. Bilateral apophyseal joints are intact with normal alignment. Conus medullaris is seen normally at L2 level. MR/MR lumbar spine wo con IMPRESSION: 1. Mild degenerative disc disease at L5-S1 with mild posterior disc protrusion. 2. No significant spinal canal or neural foraminal stenosis. 3. 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
== END 2023-11-29 07:26 | disposition home or self-care (01) ==
LOC: HO.MRI 07:25
PROVIDERS: PCP Internal Medicine; Visit Provider Student in an Organized Health Care Education/Training Program
DX: M54.16 Radiculopathy, lumbar region (principal)
CPT/HCPCS: 72148